=== PATIENT | female | born 1955 | race Caucasian/White ===

== ENCOUNTER 2018-04-16 17:57 | Inpatient (IN) | payer MEDICAID ==
[~2018-04-16] VITALS: Ht 175.3 cm; Wt 60.8 kg
[~2018-04-16 17:57] MED LIST: ACET325T9 PO; BENZ1LOZ48 MM; CLON2TAB9 PO; DIVA-51 PO; DIVA500T4 PO; DOCU240C13 PO; DONE5TAB7 PO; FLUC100T4 PO; HALO100A2 IM; HALO5TAB PO; HALO5VIA2 IM; IBUP400T18 PO; IBUP600T16 PO; IBUP800T19 PO; LORA2TAB IM; LORA2TAB PO; LORA2VIA6 IM; MAG360OR24 PO; MAGN400O7 PO; MENT1LOZ3 MM; METH29OI TP; MULT-245 PO; POLY17PO5 PO; RISP1TAB3 PO; SENN-79 PO; SENN8.6T67 PO
[2018-04-16 18:18] VITALS: BP 132/70
--- NOTE | 2018-04-16 18:32 | NUR ---
Admission Note with Justification for Admission to [facility] Patient admitted to [facility] for protective oversight for emergency stabilization of acute psychiatric crisis. Pt admitted from: [facility]/she resides at [facility] Mode of arrival: EMS Accompanied By: EMS Precipitating behaviors that initiated intake and admission: patient has been psychotic, refusing labs and meds, argumentative, delusional, paranoid, disruptive and intrusive. She has broken dishes and kicked a hole in some glass. Description of failure of out patient attempts at stabilization in previous setting list behavior and medication trials: patient has had previous stay at [facility] 12/2015 and 07/2016. patient has been given IM ativan and IM zyprexa at [facility] because she was hitting staff and refusing meds and cares. Behaviors and assessment findings upon admission: Patient arrived at 1800 accompanied by EMS. Patient was spitting at nurse upon arrival, resistive with vital signs and refused physical assessment. Patient marcela back fist at nurse. Offered patient strawberry boost, which she accepted. Patient appears thin and stern, is a smoker, and refused to answer orientation questions. Stating "you know" when asked her name and reason she is here. Unable to perform a skin assessment r/t patients agitation/combativeness at this time. Patient had been given 4mg ativan IM at 1700 before leaving [facility]. Plan: Admit for protective oversight for adjustment and stabilization of medications, behaviors and mood. Intense treatment regimen including groups, medication adjustments, therapy, consistent regimen for ADL's, self care, and sleep hygiene. Daily monitoring by Inpatient staff, Psychiatry, and Medical Physician.
--- NOTE | 2018-04-16 18:39 | NUR ---
Patient punched at staff while staff was getting vital signs. Resistive with all interactions, marcela back to punch nurse and spit at nurse. Patient removed all of the linens from her freshly made bed, threw them on floor, spit on linens and at nurse. Patient combative when approached for skin assessment. Patient sitting in chair in her room, gave strawberry boost to her because she refused box lunch that was ordered for her.
[2018-04-16] MEDS ORDERED: ACETAMINOPHEN 325 MG TABLET PO PRN ×2 (18:45→21:15)
[2018-04-16] MEDS ORDERED: MAG HYDROX/AL HYDROX/SIMETH 30 ML ORAL.SUSP PO PRN ×2 (18:45→21:30)
[2018-04-16] MEDS ORDERED: MAGNESIUM HYDROXIDE 2,400 MG/30 ML ORAL.SUSP. PO PRN (18:45)
[2018-04-16] MEDS ORDERED: METHYL SALICYLATE/MENTHOL TOPICAL OINTMENT 29GM TUBE. TP PRN (18:45)
[2018-04-16] MEDS ORDERED: LORA2DIS2 IJ (20:55)
[2018-04-16 21:00] LABS: BASO # 2.2 x10^3/uL (0.0-0.2); BASO % 1 % (0-3); EOS # 0.6 x10^3/uL (0.0-0.7); EOS % 0 % (0-3); HEMATOCRIT 37.7 % (36.0-47.0); HEMOGLOBIN 12.1 g/dL (12.0-15.5); LYMPH # 262.9 x10^3/uL (1.0-4.8); LYMPH % 92 % (24-48); MEAN CORPUSCULAR HEMOGLOBIN 29 pg (25-35); MEAN CORPUSCULAR HGB CONC 32 g/dL (31-37); MEAN CORPUSCULAR VOLUME 91 fL (79-100); MONO # 7.2 x10^3/uL (0.0-1.1); MONO % 3 % (0-9); NEUT # 13.6 x10^3uL (1.8-7.7); NEUT % 5 % (31-73); PLATELET COUNT 171 x10^3/uL (140-400); RED BLOOD COUNT 4.13 x10^6/uL (3.50-5.40); RED CELL DISTRIBUTION WIDTH 15.6 % (11.5-14.5)
[2018-04-16] MEDS ORDERED: HYDR25TA PO (21:03)
[2018-04-16] MEDS ORDERED: NICO2GUM5 BC (21:03)
[2018-04-16] MEDS ORDERED: ONDA4TAB12 PO (21:03)
[2018-04-16] MEDS ORDERED: HYDR-2758 PO (21:03)
[2018-04-16] MEDS ORDERED: MAG360OR24 PO (21:03)
--- NOTE | 2018-04-16 21:06 | PDOC ---
Exam Note: Mazin Note: Please also refer to the separate dictated note~for this date of service dictated separately.~Patient seen individually. Discussed the patient with Nursing staff reviewed the chart.~Reviewed interim history and current functioning. Reviewed vital signs,~Labs/ Radiology~and current medications noted below. Continue current treatment with the changes noted in the dictated addendum note Assessment: Vital Signs: Vital Signs Date Time Temp Pulse Resp B/P (MAP) Pulse Ox O2 Delivery O2 Flow Rate FiO2 04/16/18 18:18 97.9 132/70 (90) 04/16/18 18:18 111 19 95 Room Air Current Medications: Meds: Current Medications Acetaminophen (Tylenol) 650 mg PRN Q6HRS PRN PO PAIN / TEMP; Start 04/16/18 at 18:45 Multi-Ingredient Ointment (Analgesic [place]) 1 amarilys PRN QID PRN TP MUSCLE PAIN; Start 04/16/18 at 18:45 Al Hydroxide/Mg Hydroxide (Mylanta Plus Xs) 15 ml PRN AFTMEALHC PRN PO DYSPEPSIA; Start 04/16/18 at 18:45 Magnesium Hydroxide (Milk Of Magnesia) 2,400 mg PRN QHS PRN PO CONSTIPATION; Start 04/16/18 at 18:45 Nicotine (Nicoderm Cq 14mg) 1 patch DAILY TD ; Start 04/17/18 at 09:00 Active Scripts Active Reported Nicorette (Nicotine Polacrilex) 2 Mg Gum 2 Mg BC PRN Q1HR PRN Ondansetron Odt (Ondansetron) 4 Mg Tab.rapdis 4 Mg PO PRN Q4HRS PRN Alum-Mag Hydroxide-Simeth Liq (Mag Hydrox/Al Hydrox/Simeth) 360 Ml Oral.susp 30 Ml PO PRN Q4HRS PRN Hydrocodone-Apap 5-325 (Hydrocodone Bit/Acetaminophen) 1 Each Tablet 1 Tab PO PRN Q4HRS PRN Hydroxyzine Hcl 25 Mg Tablet 25 Mg PO PRN Q4HRS PRN Lorazepam 2 Mg/1 Ml Disp.syrin 2 Mg IJ PRN Q4HRS PRN Haloperidol 5 Mg Tablet 10 Mg PO BID Ibuprofen 600 Mg Tablet 600 Mg PO PRN Q6HRS PRN Tylenol (Acetaminophen) 325 Mg Tablet 325 Mg PO PRN Q6HRS PRN Miralax (Polyethylene Glycol 3350) 17 Gm Powd.pack 17 Gm PO DAILY PRN Haloperidol 5 Mg Tablet 5 Mg PO PRN Q6HRS I have reviewed the current psychotropics carefully including drug interactions. Risk benefit ratio favors no change other than as noted in my dictated progress note. Diagnosis: Problems: (1) Paranoid schizophrenia (2) Schizoaffective disorder (3) Myelodysplastic disease CARLOS REDDY MD Apr 16, 2018 21:06
[2018-04-16] MEDS ORDERED: hydrOXYzine HCL 25 MG TABLET PO PRN (21:15)
[2018-04-16 21:29] LABS: WHITE BLOOD COUNT 286.5 x10^3/uL (4.0-11.0)
[2018-04-16] MEDS ORDERED: HYDROcodone/APAP 5/325MG 1 TAB TABLET PO PRN (21:30)
[2018-04-16] MEDS ORDERED: HALOPERIDOL 5 MG TABLET PO PRN (21:30)
[2018-04-16] MEDS ORDERED: IBUPROFEN 600 MG TABLET. PO PRN (21:30)
--- NOTE | 2018-04-16 21:35 | NUR ---
Critical WBC [facility] Lab called this nurse with a critical lab result of WBC 286.5. Doctor Rancho called @ 2230 and no new orders were given only to continue to monitor patient for signs of sepsis. Nursing [employer] Florence called @ 2230.
[2018-04-16 21:43] LABS: ALBUMIN 4.1 g/dL (3.4-5.0); ALBUMIN/GLOBULIN RATIO 1.5 (1.0-1.7); CALCIUM 9.2 mg/dL (8.5-10.1); MAGNESIUM 2.2 mg/dL (1.8-2.4); POTASSIUM 4.1 mmol/L (3.5-5.1); TOTAL BILIRUBIN 1.1 mg/dL (0.2-1.0); TOTAL PROTEIN 6.9 g/dL (6.4-8.2)
[2018-04-16] MEDS: HALOPERIDOL 5 MG TABLET PO SCH (21:47)
[2018-04-16 22:12] LABS: % BANDS 0 % (0-9); % BASOS 0 % (0-3); % EOS 0 % (0-5); % LYMPHS 97 % (24-48); % MONOS 0 % (0-10); % SEGS 3 % (35-66); ANISOCYTOSIS SLIGHT; PLT ESTIMATE ADEQUATE (ADEQUATE); SMUDGE CELLS PRESENT
--- NOTE | 2018-04-16 23:18 | NUR ---
Nursing Note Patient is non compliant with medications and cares this shift. Patient is delusional and very disorganized. Patient is non compliant with staff directions to ask for assistance when ambulating. Patient is currently in quiet room for observation and safety.
[2018-04-17 05:39] VITALS: BP 145/72
--- NOTE | 2018-04-17 08:37 | NUR ---
On 04/16/18 at 12:50pm, call placed Keerthi at [place] Medicaid office who reported that Dorinda has Title 19 traditional medicaid with no MCO attached at this time. Keerthi suggested that once Dorinda was admitted to the unit, to notify [facility] at and to use prompt one for Malay, prompt 3 for elderly and disabled, prompt 2 for providers, and prompt 4 for updates to cases. On 04/17/18 at 8:35am, call placed to Lisbet at [facility] to notify that Dorinda was admitted to [facility] as of 04/16/18. Lisbet suggested getting a release of information from Dorinda's legal guardian should further information need to be exchanged. Will contact legal guardian to get release signed.
[2018-04-17] MEDS ORDERED: POLYETHYLENE GLYCOL 3350 17 GM PACKET. PO PRN (09:00)
[2018-04-17] MEDS: HALOPERIDOL 5 MG TABLET PO SCH ×3 (10:12→21:17)
[2018-04-17] MEDS: ONDANSETRON ODT 4 MG TAB.RAPDIS PO PRN ×2 (10:12→23:45)
[2018-04-17] MEDS: NICOTINE 14MG PATCH. TD SCH (10:12)
--- NOTE | 2018-04-17 10:20 | NUR ---
Patient has been c/o nausea and vomiting yellow bilious fluid. Attempted to provide prn med, patient refused, she continued to refuse after patient education. Will report to MD and continue to monitor.
--- NOTE | 2018-04-17 10:20 | NUR ---
Behavior Intervention Response and Plan: BIRP Note: Behavior: Assumed Care of patient, patient located in Quiet Room at shift change. Patient exhibited the following behavior Disorganized, Compulsive, Non Compliant with Meds. Brief assessment on rounds of vital signs, medication needs, lab studies, and pain. Treatment plan problems 1 & 2. Intervention: Patient assessed and the following interventions initiated safety checks 15 Minute Checks Cognitive Assessment , Head to toe Assessment , Medications. Response: After interactions and interventions patient responded in the following manner, Calm , Disorganized ,Non Compliant with Meds. Continue to assess behaviors and condition will continue to monitor throughout the shift as needed. Patient educated on ADL's, and hand hygiene. Plan: Continue to monitor Master Treatment Plan for patient's progress toward short term goals of Decreased Agitation, No harm To self/ others, fpc goals to return to previous living setting vs placement. Continue to assess patient for changes in above assessment. Monitor for medication needs, pain, and safety concerns. Hourly rounding performed to ensure safe environment.
[2018-04-17 13:19] LABS: THYROID STIM HORMONE (TSH) 3.456 uIU/mL (0.358-3.740)
--- NOTE | 2018-04-17 14:13 | NUR ---
Patient has been provided with Practical Counseling for tobacco cessation. It included a face to face interaction and the following was discussed: Recognizing danger situations, Developing coping skills,Basic cessation information. Will follow for discharge needs and discharge planning. Patient refused
[2018-04-17] MEDS ORDERED: METOCLOPRAMIDE HCL 10 MG/2 ML VIAL. IM PRN (14:30)
--- NOTE | 2018-04-17 14:52 | HP ---
ADMIT DATE: 04/16/2018 PSYCHIATRIC ADMISSION HISTORY/EVALUATION This late entry 04/16/2018 covers elements not covered in my initial note of 04/16/2018. The patient was seen individually on evening of 04/16/2018, discussed with nursing staff several times including prior to the patient's admission and she was referred to us from [facility] where she presented from the [facility] in [place]. She was medically stabilized. She was psychotic, refusing labs, argumentative, confused, believes she is in [place]. She is paranoid, aggressive, disruptive, intrusive, throwing things, had been on one-on-one status for a few days. She kicked a hole and sunglass. She has broken dishes, was kicking at other residents. She had failed outpatient psychiatric interventions resulting in this referral. She is referred by Dr. Kami Kumari, psychiatrist. CHIEF COMPLAINT: "I am not feeling well." HISTORY OF PRESENT ILLNESS: The patient has a long history of schizoaffective disorder, bipolar type, mixed with psychotic features. She has been residing at a level 2 facility, being followed fairly closely by Dr. Peralta, psychiatrist. Over the last several days, she has been extremely psychotic, agitated, confused as noted, paranoid, throwing things and aggressive. She has failed outpatient psychiatric treatment and has had to be on one-on-one status. She was sent to the ER at [place], admitted for medical stabilization, and then referred to us. PAST PSYCHIATRIC HISTORY: As above. She has been hospitalized here in 12/2015 and 07/2016. FAMILY HISTORY: Noncontributory. PAST MEDICAL HISTORY: Positive for hypertension, myelodysplastic disorder, leukemia, recurrent UTIs, chronic constipation. DRUG ALLERGIES: PENICILLIN, FLUPHENAZINE, LITHIUM. CURRENT PSYCHOTROPICS: MRAD was reviewed. CODE STATUS: Full code. FAMILY HISTORY: Noncontributory. SOCIAL HISTORY: No alcohol, drug abuse, physical, sexual or elder abuse history is noted. She is not known to be a perpetrator. REACTION TO HOSPITALIZATION: The patient accepting of it. ASSETS: Supportive living at the above facility. MENTAL STATUS EXAM: The patient was seen individually on the evening of 04/16/2018. She seemed to recognize me and oriented to herself, unaware of the date and the year. Speech is coherent, somewhat slurred at times. Abstraction fair, computation impaired, language function intact. Attention span short. She appears paranoid, suspicious. No active suicidal or homicidal ideation. Intellect average. Insight limited. IMPRESSION: Schizoaffective disorder, bipolar type, mixed with psychotic features; anxiety disorder, unspecified; impulse control disorder, unspecified. Rest diagnoses as above. PLAN: Admit to geropsychiatry unit at [facility]. I will see the patient daily individually from a psychiatric standpoint, medical followup requested with Dr. Vickers/Dr. Calzada. Continue the patient on her current psychotropics, observe her baseline, then make further adjustments as clinically indicated. Estimated length of stay 10-12 days. DISPOSITION: Plans back to nursing facility once she is psychiatrically stable. MAN Michael REDDY MD DR: FRANCISCO/millicent JOB#: [id number] / [id number]
--- NOTE | 2018-04-17 15:11 | NUR ---
Call placed to Haylie, legal guardian, to request authorization for release of information be signed to allow communication with [facility]. Left message for Haylie with request for return phone call. Awaiting return call.
[2018-04-17 17:16] VITALS: BP 136/71
--- NOTE | 2018-04-17 17:24 | RAD ---
Right upper quadrant abdominal ultrasound, 04/17/2018: HISTORY: Elevated liver enzymes The study was limited by the patient's inability to fully cooperate. A single gallstone is identified in the gallbladder. The gallbladder casper are not thickened. The common hepatic duct measures 5 to 6 mm. No intrahepatic biliary ductal dilatation is seen. There is a suggestion of two small relatively isoechoic nodules at the hepatic hilum. These are not clearly defined. The visualized portions of the right kidney and pancreas are unremarkable. IMPRESSION: 1. Cholelithiasis. 2. Possible hepatic masses near the korina hepatis. CT scanning is suggested for further evaluation. Electronically signed by: Ravinder Nguyen MD (04/17/2018 5:20 PM) [facility]
[2018-04-17 20:10] LABS: THYROXINE 10.8 ug/dL (4.5-12.0)
--- NOTE | 2018-04-17 20:39 | PDOC ---
Exam Note: Mazin Note: Please also refer to the separate dictated note~for this date of service dictated separately.~Patient seen individually. Discussed the patient with Nursing staff reviewed the chart.~Reviewed interim history and current functioning. Reviewed vital signs,~Labs/ Radiology~and current medications noted below. Continue current treatment with the changes noted in the dictated addendum note Assessment: Vital Signs: Vital Signs Date Time Temp Pulse Resp B/P (MAP) Pulse Ox O2 Delivery O2 Flow Rate FiO2 04/17/18 17:16 99.0 87 20 136/71 (92) 100 04/16/18 18:18 Room Air I&O Intake and Output 04/17/18 07:00 Intake Total 480 ml Balance 480 ml Intake Oral 480 ml # Voids 1 Labs: Laboratory Tests Test 04/16/18 20:45 White Blood Count 286.5 x10^3/uL (4.0-11.0) *H Red Blood Count 4.13 x10^6/uL (3.50-5.40) Hemoglobin 12.1 g/dL (12.0-15.5) Hematocrit 37.7 % (36.0-47.0) Mean Corpuscular Volume 91 fL (79-100) Mean Corpuscular Hemoglobin 29 pg (25-35) Mean Corpuscular Hemoglobin Concent 32 g/dL (31-37) Red Cell Distribution Width 15.6 % (11.5-14.5) H Platelet Count 171 x10^3/uL (140-400) Neutrophils (%) (Auto) 5 % (31-73) L Lymphocytes (%) (Auto) 92 % (24-48) H Monocytes (%) (Auto) 3 % (0-9) Eosinophils (%) (Auto) 0 % (0-3) Basophils (%) (Auto) 1 % (0-3) Neutrophils # (Auto) 13.6 x10^3uL (1.8-7.7) H Lymphocytes # (Auto) 262.9 x10^3/uL (1.0-4.8) H Monocytes # (Auto) 7.2 x10^3/uL (0.0-1.1) H Eosinophils # (Auto) 0.6 x10^3/uL (0.0-0.7) Basophils # (Auto) 2.2 x10^3/uL (0.0-0.2) H Segmented Neutrophils % 3 % (35-66) L Band Neutrophils % 0 % (0-9) Lymphocytes % 97 % (24-48) H Monocytes % 0 % (0-10) Eosinophils % 0 % (0-5) Basophils % 0 % (0-3) Smudge Cells Present Platelet Estimate Adequate (ADEQUATE) Anisocytosis Slight Sodium Level 138 mmol/L (136-145) Potassium Level 4.1 mmol/L (3.5-5.1) Chloride Level 103 mmol/L (98-107) Carbon Dioxide Level 25 mmol/L (21-32) Anion Gap 10 (6-14) Blood Urea Nitrogen 22 mg/dL (7-20) H Creatinine 1.0 mg/dL (0.6-1.0) Estimated GFR (Cockcroft-Gault) 56.0 BUN/Creatinine Ratio 22 (6-20) H Glucose Level 259 mg/dL (70-99) H Calcium Level 9.2 mg/dL (8.5-10.1) Magnesium Level 2.2 mg/dL (1.8-2.4) Iron Level 35 ug/dL (50-170) L Total Iron Binding Capacity 272 ug/dL (250-450) Iron Saturation 13 % (15-34) L Total Bilirubin 1.1 mg/dL (0.2-1.0) H Aspartate Amino Transferase (AST) 53 U/L (15-37) H Alanine Aminotransferase (ALT) 74 U/L (14-59) H Alkaline Phosphatase 206 U/L (46-116) H Total Protein 6.9 g/dL (6.4-8.2) Albumin 4.1 g/dL (3.4-5.0) Albumin/Globulin Ratio 1.5 (1.0-1.7) Triglycerides Level 131 mg/dL (0-150) Cholesterol Level 148 mg/dL (0-200) LDL Cholesterol, Calculated 86 mg/dL (0-100) VLDL Cholesterol, Calculated 26 mg/dL (0-40) Non-HDL Cholesterol Calculated 112 mg/dL (0-129) HDL Cholesterol 36 mg/dL (40-60) L Cholesterol/HDL Ratio 4.0 Vitamin B12 Level 888 pg/mL (247-911) 25-Hydroxy Vitamin D Total 24.8 ng/mL (30-100) L Thyroid Stimulating Hormone (TSH) 3.456 uIU/mL (0.358-3.740) Thyroxine (T4) 10.8 ug/dL (4.5-12.0) Total Triiodothyronine (TT3) 115 ng/dL (71-180) Treponema pallidum Antibody Nonreactive (Nonreactive) Current Medications: Meds: Current Medications Acetaminophen (Tylenol) 650 mg PRN Q6HRS PRN PO PAIN / TEMP; Start 04/16/18 at 18:45 Multi-Ingredient Ointment (Analgesic [place]) 1 amarilys PRN QID PRN TP MUSCLE PAIN; Start 04/16/18 at 18:45 Al Hydroxide/Mg Hydroxide (Mylanta Plus Xs) 15 ml PRN AFTMEALHC PRN PO DYSPEPSIA; Start 04/16/18 at 18:45; Status Cancel Magnesium Hydroxide (Milk Of Magnesia) 2,400 mg PRN QHS PRN PO CONSTIPATION; Start 04/16/18 at 18:45 Nicotine (Nicoderm Cq 14mg) 1 patch DAILY TD Last administered on 04/17/18at 10: 12; Start 04/17/18 at 09:00 Haloperidol (Haldol) 5 mg PRN Q6HRS PRN PO AGITATION; Start 04/16/18 at 21:30 Haloperidol (Haldol) 10 mg BID PO Last administered on 04/16/18at 21:47; Start 04/16/18 at 21:00 Acetaminophen (Tylenol) 325 mg PRN Q6HRS PRN PO PAIN / TEMP; Start 04/16/18 at 21:15 Hydroxyzine HCl (Atarax) 25 mg PRN Q4HRS PRN PO ITCHING Last administered on at 01:48; Start 04/16/18 at 21:15 Ondansetron HCl (Zofran Odt) 4 mg PRN Q4HRS PRN PO NAUSEA/VOMITING; Start 04/16 at 21:30 Acetaminophen/ Hydrocodone Bitart (Lortab 5/325) 1 tab PRN Q4HRS PRN PO PAIN; Start 04/16/18 at 21:30 Ibuprofen (Motrin) 600 mg PRN Q6HRS PRN PO INFLAMMATION; Start 04/16/18 at 21: 30 Al Hydroxide/Mg Hydroxide (Mylanta Plus Xs) 30 ml PRN Q4HRS PRN PO DYSPEPSIA; Start 04/16/18 at 21:30 Polyethylene Glycol (miraLAX) 17 gm PRN DAILY PRN PO CONSTIPATION; Start at 09:00 Metoclopramide HCl (Reglan Vial) 5 mg PRN Q6HRS PRN IM NAUSEA/VOMITING; Start 04/17/18 at 14:30 Active Scripts Active Reported Nicorette (Nicotine Polacrilex) 2 Mg Gum 2 Mg BC PRN Q1HR PRN Ondansetron Odt (Ondansetron) 4 Mg Tab.rapdis 4 Mg PO PRN Q4HRS PRN Alum-Mag Hydroxide-Simeth Liq (Mag Hydrox/Al Hydrox/Simeth) 360 Ml Oral.susp 30 Ml PO PRN Q4HRS PRN Hydrocodone-Apap 5-325 (Hydrocodone Bit/Acetaminophen) 1 Each Tablet 1 Tab PO PRN Q4HRS PRN Hydroxyzine Hcl 25 Mg Tablet 25 Mg PO PRN Q4HRS PRN Lorazepam 2 Mg/1 Ml Disp.syrin 2 Mg IJ PRN Q4HRS PRN Haloperidol 5 Mg Tablet 10 Mg PO BID Ibuprofen 600 Mg Tablet 600 Mg PO PRN Q6HRS PRN Tylenol (Acetaminophen) 325 Mg Tablet 325 Mg PO PRN Q6HRS PRN Miralax (Polyethylene Glycol 3350) 17 Gm Powd.pack 17 Gm PO DAILY PRN Haloperidol 5 Mg Tablet 5 Mg PO PRN Q6HRS I have reviewed the current psychotropics carefully including drug interactions. Risk benefit ratio favors no change other than as noted in my dictated progress note. Diagnosis: Problems: (1) Paranoid schizophrenia (2) Schizoaffective disorder (3) Myelodysplastic disease CARLOS REDDY MD Apr 17, 2018 20:39
--- NOTE | 2018-04-17 20:55 | CONS ---
DATE OF CONSULTATION: 04/17/2018 REASON FOR CONSULTATION: Medical management. HISTORY OF PRESENT ILLNESS: The patient is a 62-year-old female patient, who was transferred from [facility] where she was admitted from . Her pain is extremely psychotic, refusing labs, argumentative, believes she is in [place]. She is extremely confused, disoriented to time, place. She is paranoid, aggressive, disruptive, and intrusive, throwing things. She apparently has broken dishes and other residents some windows and was admitted to all this in a background of schizophrenia and she is here for inpatient psychiatric stabilization. PAST MEDICAL HISTORY: Significant for hypertension, chronic lymphatic leukemia. PAST SURGICAL HISTORY: Significant for schizophrenia and mood disorder. ALLERGIES: She is allergic to INFLUENZA VIRUS VACCINE, PENICILLIN, FLUPHENAZINE, and LITHIUM. MEDICATIONS: She is currently on Nicorette 2 mg every hour as needed, ibuprofen 600 mg every 6 hours, hydrocodone/APAP 5/325 one tablet every 4 hours, Tylenol 650 mg every 6 hours, haloperidol 5 mg every 6 hours, Haldol 10 mg p.o. b.i.d., lorazepam 2 mg injectable every 4 hours as needed, hydroxyzine 25 mg every 4 hours, Mylanta 30 mL every 4 hours as needed, polyethylene glycol 17 g daily p.r.n. for constipation, and ondansetron 4 mg every 4 hours as needed. FAMILY HISTORY: Unobtainable. SOCIAL HISTORY: She has been a resident at a long term facility. She was in fact on hospice and that was revoked for her to be admitted to the hospital for further psychiatric stabilization. REVIEW OF SYSTEMS: The patient was very uncooperative and did answer any question. She was extremely confused. PHYSICAL EXAMINATION: GENERAL: When I examined her, she was lying on the floor and in a position and she was somewhat pale, but no jaundice, cyanosis, or thyromegaly. No jugular venous distension. No limb edema. VITAL SIGNS: Her heart rate was 81, blood pressure was 145/72, temperature was 97.2, respiratory rate was 18, and oxygen saturation was 97%. HEAD, EYES, EARS, NOSE, AND THROAT: Showed normocephalic, atraumatic. NECK: Supple. HEART: Showed normal first and second sounds. No gallop, rub or murmur. CHEST: Clear to auscultation. No crepitation or rhonchi. ABDOMEN: Distended, soft. Definitely, there is no tenderness. No guarding or rigidity. No organomegaly. Hernial orifice intact. Bowel sounds normal. NEUROLOGIC: She is awake, alert, but very confused. All her cranial nerves are intact. EXTREMITIES: She moves extremities without difficulty. LABORATORY DATA: Showed her serum sodium was 138, potassium 4.1, chloride 103, bicarbonate 25, anion gap of 10, BUN 22, creatinine 1, estimated GFR was 56 mL per minute. Her glucose was 259, calcium was 9.2, magnesium 2.2. Serum iron was 30-35, TIBC was 272. Iron saturation was 13%. His total bilirubin, AST, ALT, alkaline phosphatase are all elevated. Her total protein was 6.9, albumin 4.1. Her serum triglycerides of 131, total cholesterol 148, LDL was 86, VLDL was 26, HDL cholesterol was 36. Cholesterol to HDL cholesterol ratio was 4. Her TSH was 3.456. Her white cell count was 286,000, hemoglobin 12, hematocrit 37, MCV 91, and platelet count of 171,000 with a manual differential showed 92% lymphocytes, 5%, monocytes. IMPRESSION: In summary, this is a 62-year-old female patient, a [facility], was on hospice for chronic lymphatic leukemia as she has revoked hospice care for treatment of her acute psychosis. She was very uncooperative, aggressive, combative When I saw her, she did allow me to examine her properly, although I managed to generally have enough examination particularly her abdomen as her liver enzymes were markedly elevated. PLAN: My plan is to see if you can arrange for her to have abdominal ultrasound to make sure that she does not have any acute cholecystitis given that she is already when I saw her was nauseous and vomited a few times. As far as her chronic lymphatic leukemia, she seemed to be stable. Her hemoglobin and hematocrit is 12 and hematocrit 37. Her platelet count are within normal limits. Her neutrophil count is adequate and for protection against infection. Her total protein was 6.9, albumin 4.2, and there is no evidence of hypogammaglobinemia. Thank you, Dr. Flores for allowing me to participate in the care of this patient. JEANA GOULD MD DR: DOLLY/millicent JOB#: [id number] / [id number]
[2018-04-18 02:06] LABS: BASO # 0.4 x10^3/uL (0.0-0.2); BASO % 0 % (0-3); EOS # 0.2 x10^3/uL (0.0-0.7); EOS % 0 % (0-3); HEMATOCRIT 34.7 % (36.0-47.0); HEMOGLOBIN 11.2 g/dL (12.0-15.5); LYMPH # 229.5 x10^3/uL (1.0-4.8); LYMPH % 91 % (24-48); MEAN CORPUSCULAR HEMOGLOBIN 29 pg (25-35); MEAN CORPUSCULAR HGB CONC 32 g/dL (31-37); MEAN CORPUSCULAR VOLUME 91 fL (79-100); MONO # 6.4 x10^3/uL (0.0-1.1); MONO % 3 % (0-9); NEUT # 16.7 x10^3uL (1.8-7.7); NEUT % 7 % (31-73); PLATELET COUNT 138 x10^3/uL (140-400); RED BLOOD COUNT 3.83 x10^6/uL (3.50-5.40); RED CELL DISTRIBUTION WIDTH 15.5 % (11.5-14.5)
[2018-04-18 02:08] LABS: HEMOGLOBIN A1C 5.9 % (4.8-5.6)
--- NOTE | 2018-04-18 02:18 | NUR ---
Behavior Intervention Response and Plan: BIRP Note: Behavior: Assumed Care of patient, patient located in Patient Room at shift change. Patient exhibited the following behavior Disorganized, Irritable, Defensive. Brief assessment on rounds of vital signs, medication needs, lab studies, and pain. Treatment plan problems . Intervention: Patient assessed and the following interventions initiated safety checks 15 Minute Checks Head to toe Assessment , Cognitive Assessment , Medications. Response: After interactions and interventions patient responded in the following manner, Resistive , Compliant ,Delusions. Continue to assess behaviors and condition will continue to monitor throughout the shift as needed. Patient educated on ADL's, and hand hygiene. Plan: Continue to monitor Master Treatment Plan for patient's progress toward short term goals of Improved Mood, Decreased Agitation, senior living goals to return to previous living setting vs placement. Continue to assess patient for changes in above assessment. Monitor for medication needs, pain, and safety concerns. Hourly rounding performed to ensure safe environment.
[2018-04-18 02:21] LABS: WHITE BLOOD COUNT 253.2 x10^3/uL (4.0-11.0)
[2018-04-18 04:00] VITALS: BP 138/85
[2018-04-18] MEDS: NICOTINE 14MG PATCH. TD SCH ×2 (08:14→10:10)
[2018-04-18] MEDS: HALOPERIDOL 5 MG TABLET PO SCH ×2 (08:14→20:24)
--- NOTE | 2018-04-18 10:10 | NUR ---
Patient refused the nicotine patch, stating she doesn't need it because she 'forgot how to smoke'. She also refused half her haldol dose. Will continue to monitor.
--- NOTE | 2018-04-18 10:10 | NUR ---
Behavior Intervention Response and Plan: BIRP Note: Behavior: Assumed Care of patient, patient located in Patient Room at shift change. Patient exhibited the following behavior Withdrawn, Sarcastic, Resistive. Brief assessment on rounds of vital signs, medication needs, lab studies, and pain. Treatment plan problems 1 & 2. Intervention: Patient assessed and the following interventions initiated safety checks 15 Minute Checks Cognitive Assessment , Head to toe Assessment , Medications. Response: After interactions and interventions patient responded in the following manner, Interactive , Compulsive ,Disorganized. Continue to assess behaviors and condition will continue to monitor throughout the shift as needed. Patient educated on ADL's, and hand hygiene. 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 Continue to assess patient for changes in above assessment. Monitor for medication needs, pain, and safety concerns. Hourly rounding performed to ensure safe environment.
--- NOTE | 2018-04-18 14:57 | NUR ---
SW attempted to contact Gema Simons, noted as pt legal guardian. DANIAL will attempt to complete the psychosocial with Gema as Dorinda does not wish to visit with DANIAL at this time.
--- NOTE | 2018-04-18 15:25 | NUR ---
Patient requesting 'thimble full of milk of magnesia' PRN med provided per eMAR. Patient drank a little more than half of provided med then handed cup back to me stating 'If I drink anymore then I'll have diarrhea.' Will continue to monitor.
--- NOTE | 2018-04-18 15:44 | NUR ---
Sandra Simons, legal guardian, for Dorinda has signed authorization for release of information. Faxed signed release to [facility] per request.
[2018-04-18 16:30] VITALS: BP 138/75
--- NOTE | 2018-04-18 20:41 | PDOC ---
Exam Note: Mazin Note: Please also refer to the separate dictated note~for this date of service dictated separately.~Patient seen individually. Discussed the patient with Nursing staff reviewed the chart.~Reviewed interim history and current functioning. Reviewed vital signs,~Labs/ Radiology~and current medications noted below. Continue current treatment with the changes noted in the dictated addendum note Assessment: Vital Signs: Vital Signs Date Time Temp Pulse Resp B/P (MAP) Pulse Ox O2 Delivery O2 Flow Rate FiO2 04/18/18 16:30 98.3 90 18 138/75 (96) 98 04/16/18 18:18 Room Air I&O Intake and Output 04/18/18 07:00 Intake Total 120 ml Balance 120 ml Intake Oral 120 ml # Voids 1 Labs: Laboratory Tests Test 04/18/18 01:50 White Blood Count 253.2 x10^3/uL (4.0-11.0) *H Red Blood Count 3.83 x10^6/uL (3.50-5.40) Hemoglobin 11.2 g/dL (12.0-15.5) L Hematocrit 34.7 % (36.0-47.0) L Mean Corpuscular Volume 91 fL (79-100) Mean Corpuscular Hemoglobin 29 pg (25-35) Mean Corpuscular Hemoglobin Concent 32 g/dL (31-37) Red Cell Distribution Width 15.5 % (11.5-14.5) H Platelet Count 138 x10^3/uL (140-400) L Neutrophils (%) (Auto) 7 % (31-73) L Lymphocytes (%) (Auto) 91 % (24-48) H Monocytes (%) (Auto) 3 % (0-9) Eosinophils (%) (Auto) 0 % (0-3) Basophils (%) (Auto) 0 % (0-3) Neutrophils # (Auto) 16.7 x10^3uL (1.8-7.7) H Lymphocytes # (Auto) 229.5 x10^3/uL (1.0-4.8) H Monocytes # (Auto) 6.4 x10^3/uL (0.0-1.1) H Eosinophils # (Auto) 0.2 x10^3/uL (0.0-0.7) Basophils # (Auto) 0.4 x10^3/uL (0.0-0.2) H Lactic Acid Level 0.5 mmol/L (0.4-2.0) Current Medications: Meds: Current Medications Acetaminophen (Tylenol) 650 mg PRN Q6HRS PRN PO PAIN / TEMP; Start 04/16/18 at 18:45 Multi-Ingredient Ointment (Analgesic [place]) 1 amarilys PRN QID PRN TP MUSCLE PAIN; Start 04/16/18 at 18:45 Al Hydroxide/Mg Hydroxide (Mylanta Plus Xs) 15 ml PRN AFTMEALHC PRN PO DYSPEPSIA; Start 04/16/18 at 18:45; Status Cancel Magnesium Hydroxide (Milk Of Magnesia) 2,400 mg PRN QHS PRN PO CONSTIPATION Last administered on 04/18/18at 15:22; Start 04/16/18 at 18:45 Nicotine (Nicoderm Cq 14mg) 1 patch DAILY TD Last administered on 04/17/18at 10: 12; Start 04/17/18 at 09:00 Haloperidol (Haldol) 5 mg PRN Q6HRS PRN PO AGITATION; Start 04/16/18 at 21:30 Haloperidol (Haldol) 10 mg BID PO Last administered on 04/18/18at 20:24; Start 04/16/18 at 21:00 Acetaminophen (Tylenol) 325 mg PRN Q6HRS PRN PO PAIN / TEMP; Start 04/16/18 at 21:15 Hydroxyzine HCl (Atarax) 25 mg PRN Q4HRS PRN PO ITCHING Last administered on at 01:48; Start 04/16/18 at 21:15 Ondansetron HCl (Zofran Odt) 4 mg PRN Q4HRS PRN PO NAUSEA/VOMITING Last administered on 04/17/18at 23:45; Start 04/16/18 at 21:30 Acetaminophen/ Hydrocodone Bitart (Lortab 5/325) 1 tab PRN Q4HRS PRN PO PAIN; Start 04/16/18 at 21:30 Ibuprofen (Motrin) 600 mg PRN Q6HRS PRN PO INFLAMMATION; Start 04/16/18 at 21: 30 Al Hydroxide/Mg Hydroxide (Mylanta Plus Xs) 30 ml PRN Q4HRS PRN PO DYSPEPSIA; Start 04/16/18 at 21:30 Polyethylene Glycol (miraLAX) 17 gm PRN DAILY PRN PO CONSTIPATION; Start at 09:00 Metoclopramide HCl (Reglan Vial) 5 mg PRN Q6HRS PRN IM NAUSEA/VOMITING Last administered on 04/17/18at 23:45; Start 04/17/18 at 14:30 Divalproex Sodium (Depakote Er) 500 mg QHS PO Last administered on 04/18/18at 20 :29; Start 04/18/18 at 21:00 Active Scripts Active Reported Nicorette (Nicotine Polacrilex) 2 Mg Gum 2 Mg BC PRN Q1HR PRN Ondansetron Odt (Ondansetron) 4 Mg Tab.rapdis 4 Mg PO PRN Q4HRS PRN Alum-Mag Hydroxide-Simeth Liq (Mag Hydrox/Al Hydrox/Simeth) 360 Ml Oral.susp 30 Ml PO PRN Q4HRS PRN Hydrocodone-Apap 5-325 (Hydrocodone Bit/Acetaminophen) 1 Each Tablet 1 Tab PO PRN Q4HRS PRN Hydroxyzine Hcl 25 Mg Tablet 25 Mg PO PRN Q4HRS PRN Lorazepam 2 Mg/1 Ml Disp.syrin 2 Mg IJ PRN Q4HRS PRN Haloperidol 5 Mg Tablet 10 Mg PO BID Ibuprofen 600 Mg Tablet 600 Mg PO PRN Q6HRS PRN Tylenol (Acetaminophen) 325 Mg Tablet 325 Mg PO PRN Q6HRS PRN Miralax (Polyethylene Glycol 3350) 17 Gm Powd.pack 17 Gm PO DAILY PRN Haloperidol 5 Mg Tablet 5 Mg PO PRN Q6HRS I have reviewed the current psychotropics carefully including drug interactions. Risk benefit ratio favors no change other than as noted in my dictated progress note. Diagnosis: Problems: (1) Paranoid schizophrenia (2) Schizoaffective disorder (3) Myelodysplastic disease CARLOS REDDY MD Apr 18, 2018 20:41
[2018-04-18] MEDS ORDERED: DIVALPROEX ER 500 MG TAB.ER.24H PO SCH (21:00)
--- NOTE | 2018-04-18 21:10 | NUR ---
Behavior Intervention Response and Plan: BIRP Note: Behavior: Assumed Care of patient, patient located in Patient Room at shift change. Patient exhibited the following behavior Disorganized, Manic, Compliant. Pt paranoid of water having poison in it, and asked this nurse to make sure the water does not have poison in it. Brief assessment on rounds of vital signs, medication needs, lab studies, and pain. Treatment plan problems 1. Intervention: Patient assessed and the following interventions initiated safety checks 15 Minute Checks Cognitive Assessment , Head to toe Assessment , Medications. Response: After interactions and interventions patient responded in the following manner, Disorganized , Manic ,Compliant. Continue to assess behaviors and condition will continue to monitor throughout the shift as needed. Patient educated on ADL's, and hand hygiene. Plan: Continue to monitor Master Treatment Plan for patient's progress toward short term goals of Decreased Agitation, Decreased Anxiety, prison goals to return to previous living setting vs placement. Continue to assess patient for changes in above assessment. Monitor for medication needs, pain, and safety concerns. Hourly rounding performed to ensure safe environment.
--- NOTE | 2018-04-19 00:51 | PN ---
DATE: 04/17/2018 This is a late entry 04/17/2018 covers elements not covered in my initial note. SUBJECTIVE: I met with the patient evening of 04/17/2018. The patient was staffed at treatment team meeting with the entire team in the morning. Reviewed the patient's progress at length. The patient slept 4-1/4 hours previous night. She has been refusing her medications, refusing Reglan, Zofran was refused and she had some emesis. Abdominal ultrasound done, defer to Dr. Vickers. She was taken to the quiet room, spent some time on the floor then did better. REVIEW OF SYSTEMS: Positive for some nausea. No CV, , pulmonary, eye system symptoms on review. MENTAL STATUS EXAM: Oriented to herself and situation. Speech coherent, has some latency. Abstraction fair, computation unable to do serial sevens, remembered 1 or 3 objects at 3 minutes. She remains somewhat paranoid, psychotic. No active suicidal or homicidal ideation. LABORATORY DATA: Reviewed. IMPRESSION: Schizoaffective disorder, bipolar type, mixed with psychotic features, medication noncompliance. PLAN: Continue current psychotropics and we will consider adding Depakote as a mood stabilizer. She remains on Haldol 10 b.i.d. for now. CARLOS REDDY MD DR: FRANCISCO/millicent JOB#: [id number] / [id number]
--- NOTE | 2018-04-19 04:27 | NUR ---
Pt woke up saying she was in pain. This nurse tried to give her pain medication, and pt yells, "I don't take any pain medication! I don't want your help!"
[2018-04-19 06:30] VITALS: BP 139/93
[2018-04-19] MEDS: NICOTINE 14MG PATCH. TD SCH ×2 (09:00→10:06)
[2018-04-19] MEDS: HALOPERIDOL 5 MG TABLET PO SCH ×2 (10:05→19:51)
--- NOTE | 2018-04-19 10:15 | NUR ---
Patient refused the nicotine patch, stating that she does not smoke. She only took 5mg of haldol, refused to believe that the pills were 5mg, not 10mg. Will continue to monitor.
--- NOTE | 2018-04-19 10:15 | NUR ---
Behavior Intervention Response and Plan: BIRP Note: Behavior: Assumed Care of patient, patient located in Patient Room at shift change. Patient exhibited the following behavior Withdrawn, Sarcastic, Resistive. Brief assessment on rounds of vital signs, medication needs, lab studies, and pain. Treatment plan problems 1 & 2. Intervention: Patient assessed and the following interventions initiated safety checks 15 Minute Checks Cognitive Assessment , Head to toe Assessment , Medications. Response: After interactions and interventions patient responded in the following manner, Interactive , Compulsive ,Disorganized. Continue to assess behaviors and condition will continue to monitor throughout the shift as needed. Patient educated on ADL's, and hand hygiene. 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 Continue to assess patient for changes in above assessment. Monitor for medication needs, pain, and safety concerns. Hourly rounding performed to ensure safe environment.
--- NOTE | 2018-04-19 11:00 | NUR ---
ACTIVITY THERAPY ASSESSMENT: Patient was laying in her bed during the assessment. Patient was awake and alert. Patient was able to verbally express herself however cannot remember her past or current location. Patient uses a wheel chair to ambulate and will need help most ADLs. Constant redirection was needed during the assessment and patient will need help with decision making. Initial Treatment Goal: To engage in 4 activity groups per week.
[2018-04-19 16:05] VITALS: BP 167/95
--- NOTE | 2018-04-19 17:05 | NUR ---
Patient is withdrawn to her room, refusing to leave her bed and come to dinner. Patient states that she is unstable because the stepping stone is too small and she cannot walk to her wheelchair. Patient informed that she can come to dinner when she feels ready and that her tray would be saved, will continue to monitor.
--- NOTE | 2018-04-19 22:16 | NUR ---
Pt located in room at shift change. Pt compliant with whole HS medications. During medication administration, pt took both of the pills and "read" them. Pt "read" off of the pills "made in [place]" "take sledgehammer here to crush pill." Pt stated that she was in a hospital in [place] and couldn't speak [place] because she "wasn't standing up like me." Pt compliant with shower and trying to get a urine sample on the toilet, however unsuccessful.
--- NOTE | 2018-04-19 22:52 | PDOC ---
Exam Note: Mazin Note: Please also refer to the separate dictated note~for this date of service dictated separately.~Patient seen individually. Discussed the patient with Nursing staff reviewed the chart.~Reviewed interim history and current functioning. Reviewed vital signs,~Labs/ Radiology~and current medications noted below. Continue current treatment with the changes noted in the dictated addendum note Assessment: Vital Signs: Vital Signs Date Time Temp Pulse Resp B/P (MAP) Pulse Ox O2 Delivery O2 Flow Rate FiO2 04/19/18 16:05 98.2 93 18 167/95 (119) 98 04/16/18 18:18 Room Air I&O Intake and Output 04/19/18 07:00 Intake Total 600 ml Balance 600 ml Intake Oral 600 ml # Voids 1 Current Medications: Meds: Current Medications Acetaminophen (Tylenol) 650 mg PRN Q6HRS PRN PO PAIN / TEMP; Start 04/16/18 at 18:45 Multi-Ingredient Ointment (Analgesic [place]) 1 amarilys PRN QID PRN TP MUSCLE PAIN; Start 04/16/18 at 18:45 Al Hydroxide/Mg Hydroxide (Mylanta Plus Xs) 15 ml PRN AFTMEALHC PRN PO DYSPEPSIA; Start 04/16/18 at 18:45; Status Cancel Magnesium Hydroxide (Milk Of Magnesia) 2,400 mg PRN QHS PRN PO CONSTIPATION Last administered on 04/18/18at 15:22; Start 04/16/18 at 18:45 Nicotine (Nicoderm Cq 14mg) 1 patch DAILY TD Last administered on 04/17/18at 10: 12; Start 04/17/18 at 09:00 Haloperidol (Haldol) 5 mg PRN Q6HRS PRN PO AGITATION; Start 04/16/18 at 21:30 Haloperidol (Haldol) 10 mg BID PO Last administered on 04/19/18at 19:51; Start 04/16/18 at 21:00 Acetaminophen (Tylenol) 325 mg PRN Q6HRS PRN PO PAIN / TEMP; Start 04/16/18 at 21:15 Hydroxyzine HCl (Atarax) 25 mg PRN Q4HRS PRN PO ITCHING Last administered on at 01:48; Start 04/16/18 at 21:15 Ondansetron HCl (Zofran Odt) 4 mg PRN Q4HRS PRN PO NAUSEA/VOMITING Last administered on 04/17/18at 23:45; Start 04/16/18 at 21:30 Acetaminophen/ Hydrocodone Bitart (Lortab 5/325) 1 tab PRN Q4HRS PRN PO PAIN; Start 04/16/18 at 21:30 Ibuprofen (Motrin) 600 mg PRN Q6HRS PRN PO INFLAMMATION; Start 04/16/18 at 21: 30 Al Hydroxide/Mg Hydroxide (Mylanta Plus Xs) 30 ml PRN Q4HRS PRN PO DYSPEPSIA; Start 04/16/18 at 21:30 Polyethylene Glycol (miraLAX) 17 gm PRN DAILY PRN PO CONSTIPATION; Start at 09:00 Metoclopramide HCl (Reglan Vial) 5 mg PRN Q6HRS PRN IM NAUSEA/VOMITING Last administered on 04/17/18at 23:45; Start 04/17/18 at 14:30 Divalproex Sodium (Depakote Er) 500 mg QHS PO Last administered on 04/18/18at 20 :29; Start 04/18/18 at 21:00; Stop 04/19/18 at 17:54; Status DC Oxcarbazepine (Trileptal) 300 mg DAILY PO ; Start 04/21/18 at 09:00 Active Scripts Active Reported Nicorette (Nicotine Polacrilex) 2 Mg Gum 2 Mg BC PRN Q1HR PRN Ondansetron Odt (Ondansetron) 4 Mg Tab.rapdis 4 Mg PO PRN Q4HRS PRN Alum-Mag Hydroxide-Simeth Liq (Mag Hydrox/Al Hydrox/Simeth) 360 Ml Oral.susp 30 Ml PO PRN Q4HRS PRN Hydrocodone-Apap 5-325 (Hydrocodone Bit/Acetaminophen) 1 Each Tablet 1 Tab PO PRN Q4HRS PRN Hydroxyzine Hcl 25 Mg Tablet 25 Mg PO PRN Q4HRS PRN Lorazepam 2 Mg/1 Ml Disp.syrin 2 Mg IJ PRN Q4HRS PRN Haloperidol 5 Mg Tablet 10 Mg PO BID Ibuprofen 600 Mg Tablet 600 Mg PO PRN Q6HRS PRN Tylenol (Acetaminophen) 325 Mg Tablet 325 Mg PO PRN Q6HRS PRN Miralax (Polyethylene Glycol 3350) 17 Gm Powd.pack 17 Gm PO DAILY PRN Haloperidol 5 Mg Tablet 5 Mg PO PRN Q6HRS I have reviewed the current psychotropics carefully including drug interactions. Risk benefit ratio favors no change other than as noted in my dictated progress note. Diagnosis: Problems: (1) Paranoid schizophrenia (2) Schizoaffective disorder (3) Myelodysplastic disease CARLOS REDDY MD Apr 19, 2018 22:52
[2018-04-20 02:37] LABS: BILIRUBIN,URINE NEG (NEG); CLARITY,URINE HAZY; COLOR,URINE YELLOW; GLUCOSE,URINE >=1000 mg/dL (NEG)
[2018-04-20 02:38] LABS: BACTERIA,URINE MOD /HPF (0-FEW); NITRITE,URINE NEG (NEG); SQUAMOUS EPITHELIAL CELL,UR OCC /LPF; UROBILINOGEN,URINE 1 mg/dL (0.2 mg/dL)
[2018-04-20 06:06] VITALS: BP 148/99
[2018-04-20] MEDS: NICOTINE 14MG PATCH. TD SCH (08:56)
[2018-04-20] MEDS: HALOPERIDOL 5 MG TABLET PO SCH ×2 (08:56→19:48)
--- NOTE | 2018-04-20 09:17 | PN ---
DATE: 04/18/2018 This is a late entry for 04/18/2018 and covers elements not covered in my initial note. SUBJECTIVE: I met with the patient in the evening. The patient slept 4 hours previous night. Per nursing report, she was hallucinating the previous night with complaint of nausea, received Atarax, Zofran, Reglan at 2:00 a.m. No vomiting was noted. She refused to take her entire dosage Haldol, only took the 5 mg, refused nicotine patch, wanders on the unit. REVIEW OF SYSTEMS: No CV, , pulmonary, eye system symptoms on review. MENTAL STATUS EXAM: Oriented to herself and situation. Speech has some latency, coherent, a little pressured at times. She is paranoid, suspicious. Abstraction fair, computation impaired, language function intact, attention span short. Mood and affect, somewhat withdrawn. She refuses to go to the dining room. LABORATORY DATA: Reviewed. IMPRESSION: Schizoaffective disorder, bipolar type, mixed with psychotic features. Rest unchanged. PLAN: We will start Depakote ER 500 mg p.o. at bedtime. Check CBC, CMP, valproic acid level in 3 days. Rest unchanged per initial note. CARLOS REDDY MD DR: FRANCISCO/millicent JOB#: [id number] / [id number]
--- NOTE | 2018-04-20 13:16 | NUR ---
Nursing Note Patient has been withdrawn to room this shift. She has been compliant with medications. She refused to get up for breakfast and lunch because " her back is broke". Patient has been laying in bed talking to her self. Will continue to monitor.
[2018-04-20 16:20] VITALS: BP 130/80
[2018-04-20] MEDS ORDERED: traZODone 100 MG TABLET. PO PRN (17:45)
--- NOTE | 2018-04-20 17:59 | NUR ---
CLOZAPINE: the patient has a hx of CLL and WBC count is abnormally elevated (WBC-253), current neutrophil count- 7%, calculated ANC= 17,710. There is no specific contraindication to use of clozapine in the cancer patient, generally cautioned for use in patients receiving chemotherapy which, does not apply in this case. Pharmacy recommends proceeding with clozapine use, pharmacy will monitor and report ANC to [facility] as normal, additional monitoring may include closer observation of the patient for any possible infectious signs while taking clozapine.
--- NOTE | 2018-04-20 20:54 | PDOC ---
Exam Note: Mazin Note: Please also refer to the separate dictated note~for this date of service dictated separately.~Patient seen individually. Discussed the patient with Nursing staff reviewed the chart.~Reviewed interim history and current functioning. Reviewed vital signs,~Labs/ Radiology~and current medications noted below. Continue current treatment with the changes noted in the dictated addendum note Assessment: Vital Signs: Vital Signs Date Time Temp Pulse Resp B/P (MAP) Pulse Ox O2 Delivery O2 Flow Rate FiO2 04/20/18 16:20 98.2 116 16 130/80 (97) 97 04/20/18 06:06 Room Air I&O Intake and Output 04/20/18 07:00 Intake Total 560 ml Output Total 1 ml Balance 559 ml Intake Oral 560 ml Output Urine Total 1 ml Labs: Laboratory Tests Test 04/20/18 01:34 Urine Collection Type U cath Urine Color Yellow Urine Clarity Hazy Urine pH 6.0 Urine Specific [place] 1.020 Urine Protein Neg (NEG-TRACE) Urine Glucose (UA) >=1000 mg/dL (NEG) Urine Ketones (Stick) Trace mg/dL (NEG) Urine Blood Trace (NEG) Urine Nitrite Neg (NEG) Urine Bilirubin Neg (NEG) Urine Urobilinogen Dipstick 1 mg/dL (0.2 mg/dL) Urine Leukocyte Esterase Trace (NEG) Urine RBC 3-5 /HPF (0-2) Urine WBC 11-20 /HPF (0-4) Urine Squamous Epithelial Cells Occ /LPF Urine Bacteria Mod /HPF (0-FEW) Current Medications: Meds: Current Medications Acetaminophen (Tylenol) 650 mg PRN Q6HRS PRN PO PAIN / TEMP; Start 04/16/18 at 18:45 Multi-Ingredient Ointment (Analgesic [place]) 1 amarilys PRN QID PRN TP MUSCLE PAIN; Start 04/16/18 at 18:45 Al Hydroxide/Mg Hydroxide (Mylanta Plus Xs) 15 ml PRN AFTMEALHC PRN PO DYSPEPSIA; Start 04/16/18 at 18:45; Status Cancel Magnesium Hydroxide (Milk Of Magnesia) 2,400 mg PRN QHS PRN PO CONSTIPATION Last administered on 04/18/18at 15:22; Start 04/16/18 at 18:45 Nicotine (Nicoderm Cq 14mg) 1 patch DAILY TD Last administered on 04/20/18at 08: 56; Start 04/17/18 at 09:00 Haloperidol (Haldol) 5 mg PRN Q6HRS PRN PO AGITATION; Start 04/16/18 at 21:30 Haloperidol (Haldol) 10 mg BID PO Last administered on 04/20/18at 19:48; Start 04/16/18 at 21:00 Acetaminophen (Tylenol) 325 mg PRN Q6HRS PRN PO PAIN / TEMP; Start 04/16/18 at 21:15 Hydroxyzine HCl (Atarax) 25 mg PRN Q4HRS PRN PO ITCHING Last administered on at 01:48; Start 04/16/18 at 21:15 Ondansetron HCl (Zofran Odt) 4 mg PRN Q4HRS PRN PO NAUSEA/VOMITING Last administered on 04/17/18at 23:45; Start 04/16/18 at 21:30 Acetaminophen/ Hydrocodone Bitart (Lortab 5/325) 1 tab PRN Q4HRS PRN PO PAIN; Start 04/16/18 at 21:30 Ibuprofen (Motrin) 600 mg PRN Q6HRS PRN PO INFLAMMATION; Start 04/16/18 at 21: 30 Al Hydroxide/Mg Hydroxide (Mylanta Plus Xs) 30 ml PRN Q4HRS PRN PO DYSPEPSIA; Start 04/16/18 at 21:30 Polyethylene Glycol (miraLAX) 17 gm PRN DAILY PRN PO CONSTIPATION; Start at 09:00 Metoclopramide HCl (Reglan Vial) 5 mg PRN Q6HRS PRN IM NAUSEA/VOMITING Last administered on 04/17/18at 23:45; Start 04/17/18 at 14:30 Divalproex Sodium (Depakote Er) 500 mg QHS PO Last administered on 04/18/18at 20 :29; Start 04/18/18 at 21:00; Stop 04/19/18 at 17:54; Status DC Oxcarbazepine (Trileptal) 300 mg DAILY PO ; Start 04/21/18 at 09:00 Trazodone HCl (Desyrel) 100 mg QHS PO Last administered on 04/20/18at 19:49; Start 04/20/18 at 21:00 Trazodone HCl (Desyrel) 100 mg PRN QHS PRN PO SEE ADMIN INSTRUCTIONS; Start at 17:45 Active Scripts Active Reported Nicorette (Nicotine Polacrilex) 2 Mg Gum 2 Mg BC PRN Q1HR PRN Ondansetron Odt (Ondansetron) 4 Mg Tab.rapdis 4 Mg PO PRN Q4HRS PRN Alum-Mag Hydroxide-Simeth Liq (Mag Hydrox/Al Hydrox/Simeth) 360 Ml Oral.susp 30 Ml PO PRN Q4HRS PRN Hydrocodone-Apap 5-325 (Hydrocodone Bit/Acetaminophen) 1 Each Tablet 1 Tab PO PRN Q4HRS PRN Hydroxyzine Hcl 25 Mg Tablet 25 Mg PO PRN Q4HRS PRN Lorazepam 2 Mg/1 Ml Disp.syrin 2 Mg IJ PRN Q4HRS PRN Haloperidol 5 Mg Tablet 10 Mg PO BID Ibuprofen 600 Mg Tablet 600 Mg PO PRN Q6HRS PRN Tylenol (Acetaminophen) 325 Mg Tablet 325 Mg PO PRN Q6HRS PRN Miralax (Polyethylene Glycol 3350) 17 Gm Powd.pack 17 Gm PO DAILY PRN Haloperidol 5 Mg Tablet 5 Mg PO PRN Q6HRS I have reviewed the current psychotropics carefully including drug interactions. Risk benefit ratio favors no change other than as noted in my dictated progress note. Diagnosis: Problems: (1) Paranoid schizophrenia (2) Schizoaffective disorder (3) Myelodysplastic disease CARLOS REDDY MD Apr 20, 2018 20:54
[2018-04-20] MEDS ORDERED: traZODone 100 MG TABLET. PO SCH (21:00)
--- NOTE | 2018-04-21 01:51 | NUR ---
Pt in dayroom at shift change. Pt compliant with HS medications, makes bizarre statements at times. No agitation/ aggression noted.
[2018-04-21 05:45] VITALS: BP 119/79
[2018-04-21 07:26] LABS: ALBUMIN 3.1 g/dL (3.4-5.0); CALCIUM 8.7 mg/dL (8.5-10.1); CREATININE 1.2 mg/dL (0.6-1.0); GFR 45.4; POTASSIUM 4.8 mmol/L (3.5-5.1); TOTAL BILIRUBIN 0.9 mg/dL (0.2-1.0); TOTAL PROTEIN 6.1 g/dL (6.4-8.2)
[2018-04-21] MEDS: HALOPERIDOL 5 MG TABLET PO SCH (08:20)
[2018-04-21] MEDS: NICOTINE 14MG PATCH. TD SCH (08:20)
[2018-04-21 08:32] LABS: BASO % 1 % (0-3); EOS % 0 % (0-3); HEMATOCRIT 40.6 % (36.0-47.0); HEMOGLOBIN 12.1 g/dL (12.0-15.5); LYMPH % 91 % (24-48); MEAN CORPUSCULAR HEMOGLOBIN 28 pg (25-35); MEAN CORPUSCULAR HGB CONC 30 g/dL (31-37); MEAN CORPUSCULAR VOLUME 93 fL (79-100); MONO % 3 % (0-9); NEUT % 5 % (31-73); PLATELET COUNT 246 x10^3/uL (140-400); RED BLOOD COUNT 4.37 x10^6/uL (3.50-5.40); RED CELL DISTRIBUTION WIDTH 15.9 % (11.5-14.5)
[2018-04-21 08:33] LABS: EOS # 0.8 x10^3/uL (0.0-0.7); LYMPH # 398.7 x10^3/uL (1.0-4.8); MONO # 14.7 x10^3/uL (0.0-1.1); NEUT # 21.8 x10^3uL (1.8-7.7)
[2018-04-21 08:36] LABS: WHITE BLOOD COUNT 534.9 x10^3/uL (4.0-11.0)
[2018-04-21 08:37] LABS: % BANDS 0 % (0-9); % BASOS 0 % (0-3); % EOS 0 % (0-5); % LYMPHS 95 % (24-48); % MONOS 0 % (0-10); % SEGS 5 % (35-66); PLT ESTIMATE ADEQUATE (ADEQUATE)
[2018-04-21] MEDS ORDERED: IV NORMAL SALINE 1,000ML 1,000 ML IV SCH (08:57)
[2018-04-21] MEDS ORDERED: DEXTROSE 50% 25 GM / 50ML DISP.SYRIN. IV PRN (09:00)
[2018-04-21] MEDS ORDERED: INSULIN REGULAR 100 UNIT/ML 3ML VIAL. IV ONE (10:00)
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
[2018-04-21] MEDS ORDERED: INSULIN LISPRO 300 UNITS/3 ML INSULN.PEN. SQ SCH (12:00)
--- NOTE | 2018-04-21 12:04 | NUR ---
Patient had a blood glucose of 508, WBC went up to 534.9. Notified Dr. Calzada of critical labs. Patient is to have IV fluids, antibiotics and regular insulin. Patient sent down to ICU bed 4 to receive insulin.
[2018-04-21 12:45] LABS: CALCIUM 8.7 mg/dL (8.5-10.1); CREATININE 1.2 mg/dL (0.6-1.0); GFR 45.4; POTASSIUM 4.9 mmol/L (3.5-5.1)
[2018-04-21] MEDS ORDERED: OXCA300T19 PO (18:03)
[2018-04-21] MEDS ORDERED: METO5VIA IJ (18:03)
[2018-04-21] MEDS ORDERED: NICO1PAT25 TP (18:03)
[2018-04-21] MEDS ORDERED: INSU100I11 SQ (18:03)
[2018-04-21] MEDS ORDERED: MAGN2400 PO (18:03)
[2018-04-21] MEDS ORDERED: LACT1CAP21 PO (18:03)
[2018-04-21] MEDS ORDERED: POLY255P PO (18:03)
[2018-04-21] MEDS ORDERED: HYDR25TA PO (18:03)
[2018-04-21] MEDS ORDERED: LEVO250P IV (18:03)
[2018-04-21] MEDS ORDERED: METH29OI TP (18:03)
[2018-04-21] MEDS ORDERED: ONDA4TAB10 SL (18:03)
[2018-04-21] MEDS ORDERED: TRAZ-86 PO ×2 (18:03)
--- NOTE | 2018-04-21 20:49 | PN ---
DATE: 04/19/2018 This late entry for 04/19/2018 covers elements not covered in my initial note. SUBJECTIVE: I met with the patient in the evening. The patient slept 5 hours previous evening, has appeared quite disorganized, talking about not being able to find her stepping stone. Unsure what she means by this. Mood remains somewhat labile. Affect is mood congruent. REVIEW OF SYSTEMS: She complains of tiredness. No CV, , pulmonary, eye system symptoms on review. MENTAL STATUS EXAM: Oriented to herself and situation. Speech coherent, at times somewhat pressured. Abstraction fair, computation impaired, language function intact. Mood and affect remain somewhat labile. LABORATORY DATA: Liver enzymes slightly elevated. We will stop the Depakote. IMPRESSION: Unchanged from initial note. PLAN: Discontinue Depakote. Start Trileptal 300 mg a day. Continue rest of the psychotropics, unchanged for now. Consider Clozaril if needed. CARLOS REDDY MD DR: FRANCISCO/millicent JOB#: [id number] / [id number]
--- NOTE | 2018-04-21 20:51 | PN ---
DATE: 04/20/2018 This is a late entry for 04/20/2018 covers elements not covered in my initial note. SUBJECTIVE: I met with the patient in the evening. The patient slept 1 hour previous night. She spends much time in bed, complains of her back hurting, compliant with medications. REVIEW OF SYSTEMS: No CV, , pulmonary, eye, ENT system symptoms on review. Reliability poor. MENTAL STATUS EXAM: Oriented to herself and situation. Speech coherent, abstraction fair. Associations somewhat loose, remains paranoid, suspicious. No active suicidal or homicidal ideation. Attention span short. Language function intact. IMPRESSION: Schizoaffective disorder, bipolar type, mixed with psychotic features; cognitive disorder, unspecified, raised LFTs. PLAN: Start Trileptal 300 mg a day. Maintain Haldol for now. May replace with Clozaril in due course. Add trazodone 100 mg at bedtime for insomnia, may repeat x 1. MAN Michael REDDY MD DR: FRANCISCO/millicent JOB#: [id number] / [id number]
[2018-04-21] MEDS ORDERED: LACTOBACILLUS RHAMNOSUS GG 1 CAPSULE. PO SCH (21:00)
--- NOTE | 2018-04-22 09:30 | DS ---
DATE OF DISCHARGE: 04/21/2018 DISCHARGE SUMMARY/PSYCHIATRIC PROGRESS NOTE This is a late entry 04/21/2018 covers elements not covered in my initial note. REASON FOR ADMISSION: Please refer to the admission history for details. Briefly, the patient is a 62-year-old female referred to us from [facility] where she presented [facility] [place], [place] on account of worsening psychotic symptoms, refusing labs and meds, argumentative, paranoid, delusional, throwing things. She was extremely agitated, psychotic, out of control, unmanageable resulting in this referral. SIGNIFICANT FINDINGS AND CLINICAL COURSE: Following admission, the patient was seen daily individually by myself, followed medically per Dr. Vickers/Dr. Calzada. She remained extremely withdrawn, refusing treatments psychotic, paranoid. Adjustments were made in her psychotropics. She was started on Trileptal 300 mg daily. Remained on Atarax p.r.n., Haldol p.r.n., and 10 mg b.i.d. Haldol with a plan to start Clozaril, but we could not initiate this secondary to her leukemia and we will have to reassess. She remains psychotic, but at this stage her blood sugars were elevated to greater than 500 and she was transferred to ICU per Dr. Vickers/Dr. Calzada. REVIEW OF SYSTEMS: Prior to discharge, ambulation impaired at times in wheelchair. No CV, , pulmonary, eye system symptoms on review. MENTAL STATUS EXAM: Oriented to herself and situation. Speech coherent, rapid at times. Abstraction fair, computation impaired, language function intact. Mood and affect labile. No suicidal or homicidal ideation. She remains psychotic. LABORATORY DATA: Reviewed. FINAL DIAGNOSES: Schizoaffective disorder, bipolar type, mixed with psychotic features; anxiety disorder, unspecified; impulse control disorder, unspecified. Blood sugars greater than 500. Rest unchanged from admission. DISCHARGE MEDICATIONS: Please refer to the EMRAD. DISCHARGE INSTRUCTIONS: Outpatient psychiatric and medical followup in the ICU. MAN Michael REDDY MD DR: FRANCISCO/millicent JOB#: [id number] / [id number]
== END 2018-04-21 11:20 | disposition short-term general hospital (02) | DRG 885 ==
LOC: GEROPSY 17:57
PROVIDERS: ADMIT Psychiatry & Neurology Psychiatry; ATTEND Psychiatry & Neurology Psychiatry
DX: F25.0 Schizoaffective disorder, bipolar type (principal); C91.10 Chronic lymphocytic leukemia of B-cell type not having achieved remission; K59.09 Other constipation; F09 Unspecified mental disorder due to known physiological condition; F63.9 Impulse disorder, unspecified; I10 Essential (primary) hypertension; Z88.0 Allergy status to penicillin; Z88.7 Allergy status to serum and vaccine; Z87.440 Personal history of urinary (tract) infections; Z91.14 Patient's other noncompliance with medication regimen; Z88.8 Allergy status to other drugs, medicaments and biological substances; Z79.899 Other long term (current) drug therapy
CPT/HCPCS: 36415; 76705; 80048; 80053; 80061; 81001; 82306; 82607; 83036; 83540; 83550; 83605; 83735; 84436; 84443; 84480; 85007; 85025; 86592; 87086; 99407; J1815; J2765; Q0162

== ENCOUNTER 2018-04-21 11:59 | Inpatient (IN) | payer MEDICAID ==
[2018-04-21] VITALS (7 sets, daily range): BP systolic 109–141; BP diastolic 63–79
[~2018-04-21] VITALS: Ht 175.3 cm; Wt 59.1 kg
[~2018-04-21 11:59] MED LIST changes: +HYDR-2758 PO; +HYDR25TA PO; +LORA2DIS2 IJ; +NICO2GUM5 BC; +ONDA4TAB12 PO
[2018-04-21] MEDS ORDERED: IV NORMAL SALINE 1,000ML 1,000 ML IV SCH (14:36)
[2018-04-21] MEDS ORDERED: INSULIN REGULAR 100 UNIT/ML 3ML VIAL. IV ONE (14:45)
[2018-04-21] MEDS ORDERED: DEXTROSE 50% 25 GM / 50ML DISP.SYRIN. IV PRN ×2 (14:45→15:00)
[2018-04-21] MEDS ORDERED: INSULIN LISPRO 300 UNITS/3 ML INSULN.PEN. SQ SCH (17:00)
[2018-04-21] MEDS: INSULIN LISPRO 300 UNITS/3 ML INSULN.PEN. SQ SCH (17:00)
[2018-04-21] MEDS ORDERED: NICO1PAT25 TP (18:03)
[2018-04-21] MEDS ORDERED: TRAZ-86 PO ×2 (18:03)
[2018-04-21] MEDS ORDERED: LEVO250P IV (18:03)
[2018-04-21] MEDS ORDERED: OXCA300T19 PO (18:03)
[2018-04-21] MEDS ORDERED: METO5VIA IJ (18:03)
[2018-04-21] MEDS ORDERED: HYDR25TA PO (18:03)
[2018-04-21] MEDS ORDERED: MAGN2400 PO (18:03)
[2018-04-21] MEDS ORDERED: ONDA4TAB10 SL (18:03)
[2018-04-21] MEDS ORDERED: POLY255P PO (18:03)
[2018-04-21] MEDS ORDERED: INSU100I11 SQ (18:03)
[2018-04-21] MEDS ORDERED: LACT1CAP21 PO (18:03)
[2018-04-21] MEDS ORDERED: METH29OI TP (18:03)
[2018-04-22 00:39] VITALS: BP 136/81
[2018-04-22 04:07] VITALS: BP 135/90
[2018-04-22 07:11] LABS: ALBUMIN 2.8 g/dL (3.4-5.0); ALBUMIN/GLOBULIN RATIO 1.1 (1.0-1.7); CALCIUM 8.3 mg/dL (8.5-10.1); CREATININE 0.7 mg/dL (0.6-1.0); GFR 84.5; MAGNESIUM 2.4 mg/dL (1.8-2.4); POTASSIUM 4.2 mmol/L (3.5-5.1); TOTAL BILIRUBIN 0.7 mg/dL (0.2-1.0); TOTAL PROTEIN 5.3 g/dL (6.4-8.2)
[2018-04-22 07:49] LABS: HEMOGLOBIN 11.2 g/dL (12.0-15.5); MEAN CORPUSCULAR HEMOGLOBIN 28 pg (25-35); MEAN CORPUSCULAR HGB CONC 31 g/dL (31-37); MEAN CORPUSCULAR VOLUME 89 fL (79-100); PLATELET COUNT 206 x10^3/uL (140-400); RED BLOOD COUNT 4.02 x10^6/uL (3.50-5.40); RED CELL DISTRIBUTION WIDTH 15.5 % (11.5-14.5)
[2018-04-22 07:50] LABS: BASO % 0 % (0-3); EOS # 0.6 x10^3/uL (0.0-0.7); EOS % 0 % (0-3); LYMPH # 381.4 x10^3/uL (1.0-4.8); LYMPH % 92 % (24-48); MONO # 11.3 x10^3/uL (0.0-1.1); MONO % 3 % (0-9); NEUT # 22.6 x10^3uL (1.8-7.7); NEUT % 5 % (31-73)
[2018-04-22 08:14] VITALS: BP 120/69
[2018-04-22] MEDS: INSULIN LISPRO 300 UNITS/3 ML INSULN.PEN. SQ SCH ×3 (08:22→17:00)
[2018-04-22 12:14] VITALS: BP 143/77
--- NOTE | 2018-04-22 14:36 | PDOC1 ---
History of Present Illness Reason for Visit: hyperglycemia History of Present Illness I was called by [facility] staff and notified patient had hyperglycemia. I requested CBC and CMP, glucose was 508 BUN 39 and creatinine 1.2 no anion gap. I ordered 15 units of regular insulin intravenously with 1 L normal saline and initiate sliding scale insulin, as well as a repeat BMP 2 hours after first insulin initiation. Apparently the staff member decided to transfer the patient to the ICU. When I arrived after clinic I discussed this with the nursing sales supervisor, she requested we keep the patient on the medical floor downgrade status to telemetry until glucose was controlled and then transfer the patient back to [facility]. Glucose normalized after the initial 15 units of regular insulin intravenously, [facility] refused to readmit the patient. manager cardiology was able to arrange for the patient to return from whence she had come. Patient is confused in no apparent distress and a poor historian. Allergies: Coded Allergies: Penicillins (Verified Allergy, Intermediate, 01/26/16) fluphenazine (Verified Allergy, Intermediate, 01/26/16) lithium (Verified Allergy, Intermediate, 01/26/16) Influenza Virus Vaccines (Verified Adverse Reaction, Severe, Unknown, 08/23) Pt states that she gets "sick" but would not provide more specific information even when prompted ref hive, vomiting, etc. Past Medical History Cardiac: HTN Heme/Onc: Other (CLL) Psych: Schizophrenia, Other (mood disorder) Past Surgical History: No pertinent history Past Social History Smoke: No Alcohol: none Drugs: None Lives: [facility] Review of Systems Review Of Systems Patient is a poor historian and I current review of systems is unobtainable Medications Current Medications Sodium Chloride 1,000 ml @ 1,000 mls/hr Q1H IV Last administered on 04/21/18at 14:45; Start 04/21/18 at 14:36; Stop 04/21/18 at 15:35; Status DC Insulin Human Regular (HumuLIN R VIAL) 15 unit 1X ONCE IV Last administered on 04/21/18at 16:22; Start 04/21/18 at 14:45; Stop 04/21/18 at 14:46; Status DC Insulin Human Lispro (HumaLOG) 0-5 UNITS TIDWMEALS SQ ; Start 04/21/18 at 17:00 ; Status UNV Dextrose 12.5 gm PRN Q15MIN PRN IV SEE COMMENTS; Start 04/21/18 at 14:45; Status UNV Insulin Human Lispro (HumaLOG) 0-5 UNITS TIDWMEALS SQ Last administered on 04/22at 08:22; Start 04/21/18 at 17:00 Dextrose 12.5 gm PRN Q15MIN PRN IV SEE COMMENTS; Start 04/21/18 at 15:00 Active Scripts Active Reported Trazodone Hcl 100 Mg Tablet 1 Tab PO PRN QHS Trazodone Hcl 100 Mg Tablet 1 Tab PO QHS Levofloxacin-D5w 250 Mg/50 Ml (Levofloxacin/D5w) 250 Mg/50 Ml Piggyback 250 Mg IV DAILY Hydroxyzine Hcl 25 Mg Tablet 1 Tab PO PRN Q4HRS PRN Polyethylene Glycol 3350 255 Gm Powder 17 Gm PO PRN DAILY PRN Oxcarbazepine 300 Mg Tablet 1 Tab PO DAILY Zofran Odt (Ondansetron) 4 Mg Tab.rapdis 1 Tab SL PRN Q4HRS PRN NICODERM CQ 14mg (Nicotine) 1 Each Patch.td24 1 Patch TP DAILY Metoclopramide Hcl 5 Mg/1 Ml Vial 5 Mg IJ PRN Q6HRS PRN Analgesic [place] (Methyl Salicylate/Menthol) 28 Gm Oint...g. 1 Gm TP PRN QID PRN Milk Of Magnesia (Magnesium Hydroxide) 2,400 Mg/10 Ml Oral.susp 2,400 Mg PO PRN QHS PRN Culturelle (Lactobacillus Rhamnosus Gg) 1 Each Capsule 1 Each PO BID Humalog (Insulin Lispro) 100 Unit/1 Ml Insuln.pen 0 SQ Nicorette (Nicotine Polacrilex) 2 Mg Gum 2 Mg BC PRN Q1HR PRN Ondansetron Odt (Ondansetron) 4 Mg Tab.rapdis 4 Mg PO PRN Q4HRS PRN Alum-Mag Hydroxide-Simeth Liq (Mag Hydrox/Al Hydrox/Simeth) 360 Ml Oral.susp 30 Ml PO PRN Q4HRS PRN Hydrocodone-Apap 5-325 (Hydrocodone Bit/Acetaminophen) 1 Each Tablet 1 Tab PO PRN Q4HRS PRN Hydroxyzine Hcl 25 Mg Tablet 25 Mg PO PRN Q4HRS PRN Lorazepam 2 Mg/1 Ml Disp.syrin 2 Mg IJ PRN Q4HRS PRN Haloperidol 5 Mg Tablet 10 Mg PO BID Ibuprofen 600 Mg Tablet 600 Mg PO PRN Q6HRS PRN Tylenol (Acetaminophen) 325 Mg Tablet 325-650 Mg PO PRN Q6HRS PRN Miralax (Polyethylene Glycol 3350) 17 Gm Powd.pack 17 Gm PO DAILY PRN Haloperidol 5 Mg Tablet 5 Mg PO PRN Q6HRS Exam Vital Signs Vital Signs Date Time Temp Pulse Resp B/P (MAP) Pulse Ox O2 Delivery O2 Flow Rate FiO2 04/22/18 12:14 77 19 143/77 (99) Room Air 04/22/18 08:14 98.5 96 GENERAL: pale, but no jaundice HEENT: Showed normocephalic, atraumatic. NECK: Supple, nontender. HEART: Showed normal first and second sounds. No gallop, rub or murmur. CHEST: Clear to auscultation. No crepitation or rhonchi. ABDOMEN: nondistended, soft. there is no tenderness. No guarding or rigidity. No organomegaly. Bowel sounds normal. NEUROLOGIC: She is awake, alert, but very confused. All her cranial nerves are intact. EXTREMITIES: She moves extremities without difficulty. Assessment/Plan Assessment/Plan Uncontrolled diabetes with hyperglycemia no acidosis: Improved with insulin administration. COURSE Allergies Coded Allergies Type Severity Reaction Last Updated Verified Penicillins Allergy Intermediate 01/26/16 Yes fluphenazine Allergy Intermediate 01/26/16 Yes lithium Allergy Intermediate 01/26/16 Yes Influenza Virus Vaccines Adverse Reaction Severe Unknown 08/23/16 Yes Laboratory Tests Test 04/21/18 17:33 04/21/18 21:39 04/22/18 06:12 04/22/18 06:53 Glucose (Fingerstick) 116 mg/dL (70-99) 258 mg/dL (70-99) 174 mg/dL (70-99) White Blood Count 423.0 x10^3/uL (4.0-11.0) Red Blood Count 4.02 x10^6/uL (3.50-5.40) Hemoglobin 11.2 g/dL (12.0-15.5) Hematocrit 36.0 % (36.0-47.0) Mean Corpuscular Volume 89 fL (79-100) Mean Corpuscular Hemoglobin 28 pg (25-35) Mean Corpuscular Hemoglobin Concent 31 g/dL (31-37) Red Cell Distribution Width 15.5 % (11.5-14.5) Platelet Count 206 x10^3/uL (140-400) Neutrophils (%) (Auto) 5 % (31-73) Lymphocytes (%) (Auto) 92 % (24-48) Monocytes (%) (Auto) 3 % (0-9) Eosinophils (%) (Auto) 0 % (0-3) Basophils (%) (Auto) 0 % (0-3) Neutrophils # (Auto) 22.6 x10^3uL (1.8-7.7) Lymphocytes # (Auto) 381.4 x10^3/uL (1.0-4.8) Monocytes # (Auto) 11.3 x10^3/uL (0.0-1.1) Eosinophils # (Auto) 0.6 x10^3/uL (0.0-0.7) Basophils # (Auto) 1.0 x10^3/uL (0.0-0.2) Sodium Level 134 mmol/L (136-145) Potassium Level 4.2 mmol/L (3.5-5.1) Chloride Level 101 mmol/L (98-107) Carbon Dioxide Level 28 mmol/L (21-32) Anion Gap 5 (6-14) Blood Urea Nitrogen 29 mg/dL (7-20) Creatinine 0.7 mg/dL (0.6-1.0) Estimated GFR (Cockcroft-Gault) 84.5 BUN/Creatinine Ratio 41 (6-20) Glucose Level 188 mg/dL (70-99) Calcium Level 8.3 mg/dL (8.5-10.1) Magnesium Level 2.4 mg/dL (1.8-2.4) Total Bilirubin 0.7 mg/dL (0.2-1.0) Aspartate Amino Transf (AST/SGOT) 163 U/L (15-37) Alanine Aminotransferase (ALT/SGPT) 252 U/L (14-59) Alkaline Phosphatase 137 U/L (46-116) Total Protein 5.3 g/dL (6.4-8.2) Albumin 2.8 g/dL (3.4-5.0) Albumin/Globulin Ratio 1.1 (1.0-1.7) Test 04/22/18 12:33 Glucose (Fingerstick) 221 mg/dL (70-99) Current Medications Medications (Trade) Dose Ordered Sig/Tod Route PRN Reason Start Time Stop Time Status Last Admin Dose Admin Sodium Chloride 1,000 ml @ 1,000 mls/hr Q1H IV 04/21/18 14:36 04/21/18 15:35 DC 04/21/18 14:45 Insulin Human Regular (HumuLIN R VIAL) 15 unit 1X ONCE IV 04/21/18 14:45 04/21/18 14:46 DC 04/21/18 16:22 Insulin Human Lispro (HumaLOG) 0-5 UNITS TIDWMEALS SQ 04/21/18 17:00 UNV Dextrose 12.5 gm PRN Q15MIN PRN IV SEE COMMENTS 04/21/18 14:45 UNV Insulin Human Lispro (HumaLOG) 0-5 UNITS TIDWMEALS SQ 04/21/18 17:00 04/22/18 08:22 Dextrose 12.5 gm PRN Q15MIN PRN IV SEE COMMENTS 04/21/18 15:00 I & O 04/22/18 00:00 Intake Total 1700 ml Balance 1700 ml Orders Procedure Category Date Status Time Vital Signs ER 04/21/18 Transmitted 14:36 Bp Monitoring ER 04/21/18 Transmitted 14:36 Prevention Coordinator ER 04/21/18 Transmitted 14:36 Saline Lock ER 04/21/18 Transmitted 14:36 Oxygen Delivery ER 04/21/18 Transmitted 14:36 Iv Normal Saline PHA 04/21/18 Complete 1,000ml (Iv Sodium 14:36 Insulin Regular Vial PHA 04/21/18 Complete (Humulin R Vial) 14:45 Pulse Oximetry: [facility] 04/21/18 In Process Standing Order 14:36 Glucose Poct Achs WENDY 04/21/18 In Process 14:36 Insulin Lispro PHA 04/21/18 In Process (Humalog) 17:00 Dextrose 50% PHA 04/21/18 In Process 15:00 Admit Orders ADT 04/21/18 Transmitted 16:08 Apply Jonah Stockings WENDY 04/21/18 In Process And Christopher Wr 19:11 Pneumatic Compression WENDY 04/21/18 In Process Device 19:11 Cbc W [employer] LAB 04/22/18 Complete 05:00 Comprehensive LAB 04/22/18 Complete Metabolic Panel 05:00 Magnesium LAB 04/22/18 Complete 05:00 Hemoglobin A1c LAB 04/22/18 In Process 12:20 Discharge From ADT 04/22/18 Transmitted Hospital 13:08 Vital Signs Date Time Temp Pulse Resp B/P (MAP) Pulse Ox O2 Delivery O2 Flow Rate FiO2 04/22/18 12:14 77 19 143/77 (99) Room Air 04/22/18 08:14 98.5 96 ROMERO CROSS DO Apr 22, 2018 14:36
[2018-04-23 01:08] LABS: HEMOGLOBIN A1C 6.8 % (4.8-5.6)
[2018-04-23] MEDS: INSULIN LISPRO 300 UNITS/3 ML INSULN.PEN. SQ SCH (08:00)
[2018-04-23 09:45] VITALS: BP 133/77
== END 2018-04-23 11:56 | disposition hospice, home (50) | DRG 638 ==
LOC: ICU 11:59
PROVIDERS: ADMIT Neuromusculoskeletal Medicine & OMM; ATTEND Neuromusculoskeletal Medicine & OMM
DX: E11.65 Type 2 diabetes mellitus with hyperglycemia (principal); E44.0 Moderate protein-calorie malnutrition; F20.9 Schizophrenia, unspecified; F39 Unspecified mood [affective] disorder; I10 Essential (primary) hypertension; Z85.6 Personal history of leukemia; Z79.899 Other long term (current) drug therapy; Z88.0 Allergy status to penicillin; Z88.7 Allergy status to serum and vaccine; Z88.8 Allergy status to other drugs, medicaments and biological substances
CPT/HCPCS: 36415; 80053; 82947; 83036; 83735; 85025; 87641; J1815; J7030